=== PATIENT | female | born 1995 | race African-American/Black ===

== ENCOUNTER 2024-01-12 17:38 | Emergency (ER) | payer MEDICAID ==
[~2024-01-12] VITALS: Ht 154.9 cm; Wt 90.7 kg
[2024-01-12 17:48] VITALS: BP 139/68; PULSE 91; RESP 16; TEMP 98.2; O2SAT 100
[2024-01-12] MEDS ORDERED: ACETAMINOPHEN 325MG TABLET PO ONE (19:30)
[2024-01-12] MEDS: LIDOCAINE HCL/PF 1% 10 MG/ML 5ML VIAL INFIL ONE (19:30)
[2024-01-12] MEDS ORDERED: BACITRACIN ZINC OINT UDPKT TOP ONE (19:30)
[2024-01-12] MEDS ORDERED: AMOX1TAB16 MT (20:49)
== END 2024-01-12 21:59 | disposition home or self-care (01) ==
LOC: ER 17:38
DX: L02.411 Cutaneous abscess of right axilla (principal)
CPT/HCPCS: 10060; 99284; J3490; Z7610 ×2